=== PATIENT | male | born 1930 | race Hispanic/Latino ===

== ENCOUNTER 2020-08-13 12:42 | Inpatient (IN) | payer MEDICARE ==
[~2020-08-13] VITALS: Ht 175.3 cm; Wt 56.5 kg
[2020-08-13] MEDS ORDERED: ZOSYN 3.375GM+NS 50ML 50 ML IV ONE (17:08)
[2020-08-13] MEDS ORDERED: 0.9%NACL 50ML 50 ML IV ONE (17:09)
[2020-08-13 18:04] LABS: CREATININE 1.4 mg/dL (0.5-1.5); POTASSIUM 5.9 mmol/L (3.5-5.1)
[2020-08-13 18:11] LABS: ALBUMIN 3.2 g/dL (3.5-5.0); BILIRUBIN,TOTAL 0.3 mg/dL (0.2-1.0); TOTAL PROTEIN, SERUM 6.7 g/dL (6.0-8.3)
[2020-08-13] MEDS ORDERED: DEXTROSE 50%-WATER 50 ML DISP.SYRIN IV PRN (18:30)
[2020-08-13] MEDS ORDERED: GLUCAGON 1MG KIT 1 MG ML IM PRN (18:30)
[2020-08-13 19:07] LABS: EOSINOPHILS % (AUTO) 1.9 % (0.0-8.0); LYMPHOCYTES % (AUTO) 17.3 % (21.0-51.0); MEAN CORPUSCULAR HEMOGLOBIN 29.1 pg (27.0-33.0); MEAN CORPUSCULAR HGB CONC 31.4 g/dL (32.0-36.0); MEAN CORPUSCULAR VOLUME 92.7 fL (79-99); MONOCYTES % (AUTO) 8.8 % (3.0-13.0); NEUTROPHILS % (AUTO) 70.7 % (40.0-77.0); PLATELET COUNT (AUTO) 275 K/uL (130-400); RED BLOOD CELL COUNT(AUTO) 3.13 MIL/uL (4.50-6.20); RED CELL DISTRIBUTION WIDTH 14.8 % (11.0-15.5); WHITE BLOOD COUNT (AUTO) 5.8 K/uL (4.8-10.8)
[2020-08-13 20:16] LABS: ERYTHROCYTE SEDIMENTATION RATE 30 MM/HR (0-20)
[2020-08-13] MEDS: INSULIN R PO SS1 SQ SCH (21:00)
[2020-08-14] VITALS (17 sets, daily range): BP systolic 96–143; BP diastolic 57–77
[2020-08-14] MEDS: ZOSYN 3.375GM+NS 50ML 50 ML IV SCH ×3 (01:00→17:00)
[2020-08-14] MEDS ORDERED: ZOSYN 3.375GM+NS 50ML 50 ML IV ONE ×3 (02:28→16:21)
[2020-08-14 06:28] LABS: BASOPHILS % (AUTO) 1.1 % (0.0-5.0); EOSINOPHILS % (AUTO) 3.2 % (0.0-8.0); HEMATOCRIT 26.6 % (42-54); LYMPHOCYTES % (AUTO) 20.6 % (21.0-51.0); MEAN CORPUSCULAR HEMOGLOBIN 29.5 pg (27.0-33.0); MEAN CORPUSCULAR VOLUME 92.4 fL (79-99); MONOCYTES % (AUTO) 8.9 % (3.0-13.0); PLATELET COUNT (AUTO) 260 K/uL (130-400); RED BLOOD CELL COUNT(AUTO) 2.88 MIL/uL (4.50-6.20); RED CELL DISTRIBUTION WIDTH 14.7 % (11.0-15.5); WHITE BLOOD COUNT (AUTO) 4.7 K/uL (4.8-10.8)
[2020-08-14 06:36] LABS: CREATININE 1.8 mg/dL (0.5-1.5); POTASSIUM 4.3 mmol/L (3.5-5.1)
[2020-08-14 06:39] LABS: ALBUMIN 3.2 g/dL (3.5-5.0); BILIRUBIN,TOTAL 0.2 mg/dL (0.2-1.0); TOTAL PROTEIN, SERUM 6.7 g/dL (6.0-8.3)
[2020-08-14] MEDS: INSULIN R PO SS1 SQ SCH ×4 (07:30→21:00)
[2020-08-14 07:32] LABS: ERYTHROCYTE SEDIMENTATION RATE 19 MM/HR (0-20)
[2020-08-14] MEDS: 0.9%NACL 1000ML 1,000 ML IV SCH ×3 (13:00→22:55)
[2020-08-14] MEDS ORDERED: BUPIVACAINE/PF 0.5% 30ML VIAL ONE (18:30)
[2020-08-14] MEDS ORDERED: LIDOCAINE HCL 1% 20 ML VIAL ONE (18:30)
[2020-08-14] MEDS ORDERED: PROPOFOL 10 MG/ML 20ML VIAL IV ONE (19:05)
[2020-08-14] MEDS ORDERED: LIDOCAINE PF 100MG/5ML (2%) SYRINGE 5ML ONE (19:05)
[2020-08-14] MEDS ORDERED: MIDAZOLAM HCL 1 MG/ML 2ML VIAL ONE (19:19)
[2020-08-14] MEDS: SIMVASTATIN 20 MG TABLET PO SCH (21:28)
[2020-08-14] MEDS ORDERED: HYDROMORPHONE 0.5 MG SYG (0.5MG/0.5ML) IVP PRN (22:00)
[2020-08-14] MEDS ORDERED: OLME40TA18 PO (22:50)
[2020-08-14] MEDS ORDERED: METF-446 PO (22:50)
[2020-08-14] MEDS ORDERED: METO-408 PO (22:50)
[2020-08-14] MEDS ORDERED: OMEP40CA21 PO (22:50)
[2020-08-14] MEDS ORDERED: AMLO-257 PO (22:50)
[2020-08-14] MEDS ORDERED: SIMV-46 PO (22:50)
[2020-08-14] MEDS ORDERED: GLIP10TA19 PO (22:50)
[2020-08-14] MEDS ORDERED: SITA100T12 PO (22:50)
[2020-08-15] VITALS (8 sets, daily range): BP systolic 108–161; BP diastolic 59–80
[2020-08-15] MEDS: ZOSYN 3.375GM+NS 50ML 50 ML IV SCH ×3 (00:12→17:37)
[2020-08-15] MEDS: MORPHINE 2 MG SYG IVP PRN ×2 (00:19→23:52)
[2020-08-15] MEDS ORDERED: PANTOPRAZOLE 40 MG TAB DR ONE (04:54)
[2020-08-15] MEDS ORDERED: METOPROLOL SUCCINATE 50 MG TAB.SR.24H PO ONE (04:55)
[2020-08-15 05:29] LABS: INR 1.07 (0.85-1.15); PROTHROMBIN TIME 11.6 SEC (9.6-11.6)
[2020-08-15 05:30] LABS: PARTIAL THROMBOPLASTIN TIME 24.5 SEC (26.3-35.5)
[2020-08-15 05:36] LABS: CREATINE KINASE, TOTAL 53 U/L (21-232); MYOGLOBIN 93 ng/mL (10-92); TROPONIN I < 0.04 ng/mL (0.00-0.06)
[2020-08-15] MEDS: INSULIN R PO SS1 SQ SCH ×4 (06:00→20:49)
[2020-08-15] MEDS: PANTOPRAZOLE 40 MG TAB DR PO SCH (06:00)
[2020-08-15] MEDS: METFORMIN HCL 500 MG TABLET PO SCH ×2 (08:00→17:00)
[2020-08-15] MEDS: HYDROCODONE/ACETAMINOPHEN 5/325 MG TAB PO PRN (08:50)
[2020-08-15] MEDS: ASPIRIN 81MG CHEW TAB PO SCH (08:51)
[2020-08-15] MEDS: LOSARTAN 100 MG TABLET PO SCH (08:51)
[2020-08-15] MEDS: AMLODIPINE 5 MG TAB PO SCH (08:51)
[2020-08-15] MEDS: METOPROLOL SUCCINATE 50 MG TAB.SR.24H PO SCH (08:51)
[2020-08-15] MEDS ORDERED: CLOPIDOGREL 75MG TAB PO SCH (09:00)
[2020-08-15] MEDS: GLIPIZIDE XL 10MG TAB PO SCH (09:00)
[2020-08-15] MEDS: LINAGLIPTIN 5 MG TABLET PO SCH (09:00)
[2020-08-15] MEDS ORDERED: CLOPIDOGREL 300MG TAB PO SCH (09:00)
[2020-08-15] MEDS: 0.9%NACL 1000ML 1,000 ML IV SCH ×2 (12:50→20:48)
[2020-08-15] MEDS: SIMVASTATIN 20 MG TABLET PO SCH (20:47)
[2020-08-16] VITALS (10 sets, daily range): BP systolic 129–163; BP diastolic 61–78
[2020-08-16] MEDS: ZOSYN 3.375GM+NS 50ML 50 ML IV SCH ×3 (00:43→17:28)
[2020-08-16] MEDS: 0.9%NACL 1000ML 1,000 ML IV SCH ×2 (04:11→15:00)
[2020-08-16] MEDS: INSULIN R PO SS1 SQ SCH ×4 (06:39→20:29)
[2020-08-16] MEDS: PANTOPRAZOLE 40 MG TAB DR PO SCH ×2 (06:40→11:56)
[2020-08-16] MEDS ORDERED: IODIXANOL 320 MG/ML 100 ML VIAL ONE (07:18)
[2020-08-16] MEDS ORDERED: MIDAZOLAM HCL 1 MG/ML 2ML VIAL ONE (07:18)
[2020-08-16] MEDS ORDERED: FENTANYL CITRATE PF 50 MCG/1 ML 2ML VIAL ONE (07:18)
[2020-08-16] MEDS ORDERED: HEPARIN 10,000 UNIT/10ML (1,000 UNIT/ML) VIAL ONE (07:18)
[2020-08-16] MEDS ORDERED: LIDOCAINE HCL 400MG/20ML VIAL ONE (07:19)
[2020-08-16] MEDS ORDERED: NITROGLYCERIN 2 MG VIAL IV ONE (07:26)
[2020-08-16] MEDS ORDERED: NICARDIPINE 25MG INJ IV ONE (07:26)
[2020-08-16] MEDS: METFORMIN HCL 500 MG TABLET PO SCH ×2 (08:00→17:28)
[2020-08-16] MEDS ORDERED: 0.9%NACL 1000ML 1,000 ML IV SCH (08:45)
[2020-08-16] MEDS: LINAGLIPTIN 5 MG TABLET PO SCH (09:00)
[2020-08-16] MEDS: GLIPIZIDE XL 10MG TAB PO SCH (09:00)
[2020-08-16] MEDS: METOPROLOL SUCCINATE 50 MG TAB.SR.24H PO SCH (11:56)
[2020-08-16] MEDS: CLOPIDOGREL 75MG TAB PO SCH (11:56)
[2020-08-16] MEDS: ASPIRIN 81MG CHEW TAB PO SCH (11:56)
[2020-08-16] MEDS: LOSARTAN 100 MG TABLET PO SCH (11:57)
[2020-08-16] MEDS: AMLODIPINE 5 MG TAB PO SCH (11:57)
[2020-08-16] MEDS: 1/2 NS 1000ML 1,000 ML IV SCH (17:29)
[2020-08-16] MEDS: HYDROCODONE/ACETAMINOPHEN 5/325 MG TAB PO PRN (20:26)
[2020-08-16] MEDS: SIMVASTATIN 20 MG TABLET PO SCH (20:26)
[2020-08-17] VITALS: BP 109/57
[2020-08-17] MEDS: ZOSYN 3.375GM+NS 50ML 50 ML IV SCH ×2 (02:39→09:20)
[2020-08-17 04:00] VITALS: BP 128/65
[2020-08-17] MEDS: HYDROCODONE/ACETAMINOPHEN 5/325 MG TAB PO PRN (04:11)
[2020-08-17 06:42] LABS: HEMATOCRIT 23.8 % (42-54); MEAN CORPUSCULAR HEMOGLOBIN 29.4 pg (27.0-33.0); MEAN CORPUSCULAR HGB CONC 32.4 g/dL (32.0-36.0); MEAN CORPUSCULAR VOLUME 90.8 fL (79-99); RED BLOOD CELL COUNT(AUTO) 2.62 MIL/uL (4.50-6.20); RED CELL DISTRIBUTION WIDTH 14.5 % (11.0-15.5); WHITE BLOOD COUNT (AUTO) 5.7 K/uL (4.8-10.8)
[2020-08-17 06:54] LABS: ALBUMIN 2.7 g/dL (3.5-5.0); BILIRUBIN,TOTAL 0.3 mg/dL (0.2-1.0); CREATININE 1.8 mg/dL (0.5-1.5); POTASSIUM 3.4 mmol/L (3.5-5.1); TOTAL PROTEIN, SERUM 5.9 g/dL (6.0-8.3)
[2020-08-17] MEDS: INSULIN R PO SS1 SQ SCH ×3 (07:30→16:30)
[2020-08-17 08:28] VITALS: BP 100/56
[2020-08-17] MEDS: GLIPIZIDE XL 10MG TAB PO SCH (09:19)
[2020-08-17] MEDS: ASPIRIN 81MG CHEW TAB PO SCH (09:20)
[2020-08-17] MEDS: AMLODIPINE 5 MG TAB PO SCH (09:20)
[2020-08-17] MEDS: METOPROLOL SUCCINATE 50 MG TAB.SR.24H PO SCH (09:20)
[2020-08-17] MEDS: CLOPIDOGREL 75MG TAB PO SCH (09:20)
[2020-08-17] MEDS: LINAGLIPTIN 5 MG TABLET PO SCH (09:20)
[2020-08-17] MEDS: LOSARTAN 100 MG TABLET PO SCH (09:20)
[2020-08-17] MEDS: METFORMIN HCL 500 MG TABLET PO SCH (09:22)
[2020-08-17 11:15] VITALS: BP 93/47
[2020-08-17] MEDS: 1/2 NS 1000ML 1,000 ML IV SCH (11:15)
== END 2020-08-17 17:55 | disposition home health service (06) | DRG 617 ==
LOC: EDH 12:42 → EDHIP 12:43 → 3AH 08-14 20:11
PROVIDERS: ADMIT Internal Medicine; ATTEND Internal Medicine
PROC: 0Y6N0ZB Detachment at Left Foot, Partial 2nd Ray, Open Approach (ICD-10-PCS; principal; 2020-08-14 19:05)
PROC: B410YZZ Fluoroscopy of Abdominal Aorta using Other Contrast (ICD-10-PCS; 2020-08-16)
PROC: B41FYZZ Fluoroscopy of Right Lower Extremity Arteries using Other Contrast (ICD-10-PCS; 2020-08-16)
PROC: B41GYZZ Fluoroscopy of Left Lower Extremity Arteries using Other Contrast (ICD-10-PCS; 2020-08-16)
DX: E11.69 Type 2 diabetes mellitus with other specified complication (principal); L03.90 Cellulitis, unspecified; M86.9 Osteomyelitis, unspecified; E11.621 Type 2 diabetes mellitus with foot ulcer; L97.529 Non-pressure chronic ulcer of other part of left foot with unspecified severity; E11.22 Type 2 diabetes mellitus with diabetic chronic kidney disease; E11.51 Type 2 diabetes mellitus with diabetic peripheral angiopathy without gangrene; D64.9 Anemia, unspecified; E78.5 Hyperlipidemia, unspecified; E88.09 Other disorders of plasma-protein metabolism, not elsewhere classified; I12.9 Hypertensive chronic kidney disease with stage 1 through stage 4 chronic kidney disease, or unspecified chronic kidney disease; N18.30 Chronic kidney disease, stage 3 unspecified; Z79.84 Long term (current) use of oral hypoglycemic drugs; Z79.899 Other long term (current) drug therapy; Z86.16 Personal history of COVID-19; Z87.891 Personal history of nicotine dependence
CPT/HCPCS: 36246; 36415; 71045; 73718; 75716; 80053; 82550; 82948; 83874; 84484; 85025; 85027; 85610; 85651; 85730; 88304; 88305; 88311; 88312; 93005; 93926; 99156; 99157; C1894; G0378; J1170; J1644; J1815; J2001; J2250; J2543; J2704; J3010; J3490; J7030; Q9967